=== PATIENT | female | born 1985 | race Caucasian/White ===

== ENCOUNTER 2017-02-25 16:30 | Emergency (ER) | payer SELFPAY ==
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
== END 2017-02-25 17:55 | disposition home or self-care (01) ==
LOC: MADERS 16:30
DX: S23.41XA Sprain of ribs, initial encounter (principal); I10 Essential (primary) hypertension; X50.9XXA Other and unspecified overexertion or strenuous movements or postures, initial encounter

== ENCOUNTER 2017-07-17 14:13 | Emergency (ER) | payer SELFPAY ==
[2017-07-17] MEDS ORDERED: HYDROcodone/Acetaminophen 10/325 mg Tablet ONE (15:18)
[2017-07-17] MEDS ORDERED: Acetaminophen 325 MG TAB ONE (15:19)
[2017-07-17] MEDS ORDERED: Ibuprofen 800 MG TAB ONE ×2 (15:19→15:20)
--- NOTE | 2017-07-17 16:27 | RAD ---
4 VIEWS LEFT KNEE: Date: 07/17/17 HISTORY: left knee pain. FINDINGS: There are tiny osteophytes seen at the medial joint compartment. No fracture or dislocation is seen i nvolving the left knee. No other osseous abnormality present. IMPRESSION: No acute osseous abnormality of left knee. POS: [id number]
== END 2017-07-17 15:45 | disposition home or self-care (01) ==
LOC: MADERS 14:13
DX: S83.92XA Sprain of unspecified site of left knee, initial encounter (principal); E66.9 Obesity, unspecified; W19.XXXA Unspecified fall, initial encounter; Y93.02 Activity, running